=== PATIENT | female | born 1975 | race Caucasian/White ===

== ENCOUNTER 2019-10-25 23:20 | Emergency (ER) | payer OTHER, SELFPAY ==
--- NOTE | ~2019-10-25 | XR_ITS ---
EXAMINATION: XR chest 2V DATE: 10/25/2019 23:58 INDICATION: Midsternal chest pain TECHNIQUE: PA and lateral views of the chest are obtained. COMPARISON: 08/01/2006 FINDINGS: The lungs are free of acute opacities. There is no pleural effusion or pneumothorax. The ca rdiomediastinal silhouette is normal. There is mild thoracic spondylosis. Bilateral breast implants a re noted. IMPRESSION: 1. No acute cardiopulmonary abnormality. Reviewed, dictated and finalized at location A.
--- NOTE | ~2019-10-25 | CT_ITS ---
EXAMINATION: CT abdomen pelvis w con INDICATION: Epigastric abdominal pain TECHNIQUE: Computed tomographic images of the abdomen and pelvis were obtained after the administrati on of 100 cc of Omnipaque 350 intravenous contrast. The dose-length product (DLP) was 850.76 mGy-cm. Automated exposure control and iterative reconstruction technique were employed. COMPARISON: None available FINDINGS: The lung bases are clear. The heart size is normal. There are partially imaged bilateral br east implants. There is a small sliding hiatal hernia. Cysts of the liver measure up to 4 mm. The spl een, pancreas, gallbladder, and adrenal glands are normal. Cysts of the kidneys measure up to 2 cm on the right. There are peripelvic cysts of the kidneys as well. There is a 5 mm nonobstructing stone o f the left kidney lower pole. There is calcified atherosclerosis of the aorta and many of the other a rteries. No pathologically enlarged abdominal or pelvic lymph nodes are identified. There is no free intraperitoneal gas or evidence of bowel obstruction. There our fat-containing umbilical and supraumb ilical hernias. IMPRESSION: 1. No CT correlate for the patient's symptoms. 2. Nonobstructing left nephrolithiasis. Reviewed, dictated and finalized at location A.
[2019-10-25 23:25] VITALS: BP 126/71; PULSE 71; RESP 12; TEMP 36.4; O2SAT 99
--- NOTE | 2019-10-25 23:31 | ECG_ITS ---
Measurements Intervals [place] Rate: 70 P: 70 W[place]: 141 QRS: 57 QRSD: 82 T: 57 QT: 368 QTc: 400 Interpretive Statements SINUS RHYTHM NORMAL ECG Electronically Signed On 10-26-2019 8:06:37 CDT by Apollo Woodruff D.O.
--- NOTE | 2019-10-25 23:37 | ED.CHESTPAIN ---
HPI - Chest Pain General Chief Complaint: Chest Pain Stated Complaint: CP, LEFT ABD PAIN, SOB Time Seen by Provider: 10/25/19 23:37 History of Present Illness HPI narrative: Intermittent chest pain for the past 2 weeks. Feels like pressure. Associated with SOB, nausea, vomting. Worse with activity. Came back tonight while out drinking. Related Data Allergies Allergy/AdvReac Type Severity Reaction Status Date / Time No Known Allergies Allergy Verified 10/25/19 23:30 Review of Systems Review of Systems: All systems reviewed & are unremarkable except as noted in HPI and below Constitutional: Constitutional: Denies fever(s) Cardiovascular: Cardiovascular: Reports chest pain and Denies radiating jaw, neck or arm pain Respiratory: Respiratory: Reports dyspnea Gastrointestinal: Gastrointestinal: Reports abdominal pain, Reports nausea and Reports vomiting Musculoskeletal: Musculoskeletal: Reports back pain Neurologic: Denies numbness and Denies weakness Psychiatric: Psychiatric: Reports anxiety [facility] Social History Social History (Updated 10/26/19 @ 03:57 by Herbert Zafar MD) Alcohol intake: current Exam Const: General: healthy appearing, no acute distress and alert Orientation/consciousness: patient oriented x3 HENMT: Head: normal to inspection Neck: Neck: normal visual inspection and no lymphadenopathy Chest: Chest palpation & inspection: no tenderness Resp: Effort & Inspection: normal respiratory effort Auscultation: clear to auscultation bilaterally, no rales, no rhonchi and no wheezes Cardio: Jugular venous distension: no JVD Rate: regular rate Rhythm: regular rhythm Heart sounds: no murmurs GI: GI Palp: Yes Soft to palpation and No Tenderness to palpation present (GI) Other: Tender over the epigastrium Skin: General skin exam: normal color Neuro: General: patient oriented x3 and moves all extremities Speech: Abnormal speech present slurred Extrem: General: no edema Psych: Appearance: disheveled Affect: normal affect and Anxious affect present Course Vital Signs Vital signs: Vital Signs Temperature 36.4 C 10/25/19 23:25 Pulse Rate 71 10/25/19 23:25 Respiratory Rate 12 10/25/19 23:25 Blood Pressure 126/71 10/25/19 23:25 Pulse Oximetry 99 10/25/19 23:25 Temperature 36.6 C 10/26/19 01:58 Pulse Rate 76 10/26/19 01:58 Respiratory Rate 19 10/26/19 01:58 Blood Pressure 111/69 10/26/19 01:58 Pulse Oximetry 100 10/26/19 01:58 MDM - Chest Pain MDM Narrative Medical decision making narrative: Pain definitely seems to be GI in nature. Normal EKG. Labs reassuring. CT done to rule out cholecystitis, showed hiatal hernia Medical Records Data Attestation: I reviewed the patient's medical records. Lab Data Attestation: I reviewed the patient's lab results. Result diagrams: 10/25/19 23:37 10/25/19 23:37 Labs: Lab Results 10/25/19 10/25/19 10/25/19 Range/Units 23:30 23:37 23:37 WBC 11.1 H (4.5-10.0) K/mm3 RBC 4.80 (4.2-5.4) M/mm3 Hgb 15.4 H (12.0-15.0) g/dL Hct 46.3 (37.0-47.0) % MCV 96.5 (80-100) fl MCH 32.1 (26-34) pg MCHC 33.3 (32-36) g/dl RDW 12.3 (11.5-14.5) % Plt Count 222 (150-375) k/mm3 MPV 10.1 (7.4-10.4) fl Immature Gran % (Auto) 0.2 (0-0.5) % Neut % (Auto) 61.9 (45.5-73.1) % Lymph % (Auto) 27.6 (18.3-44.2) % [place] % (Auto) 8.4 (2.6-8.5) % Eos % (Auto) 1.4 (0-4.4) % Baso % (Auto) 0.5 (0.2-1.2) % Lymph # (Auto) 3.05 (0.9-3.2) K/mm3 [place] # (Auto) 0.9 H (0.1-0.6) K/mm3 Eos # (Auto) 0.2 (0-0.3) K/mm3 Baso # (Auto) 0.1 (0.0-0.1) K/mm3 Abs Immat Gran (auto) 0.02 (0.00-0.031) K/mm3 Absolute Neuts (auto) 6.9 H (1.3-6.7) K/mm3 Absolute Nucleated RBC 0.0 (0.0-0.012) K/mm3 Nucleated RBC % 0.0 (0.0-0.2) % PT 11.7 (11.1-14.7) Seconds INR 0.9 APTT 29.8 (22.3-36.8) SECONDS Sodium
[2019-10-25 23:39] VITALS: PULSE 79; O2SAT 97
[2019-10-25 23:44] LABS: Basophils Absolute Auto 0.1 K/mm3 (0.0-0.1); Basophils Percent Auto 0.5 % (0.2-1.2); Eosinophils Absolute Auto 0.2 K/mm3 (0-0.3); Eosinophils Percent Auto 1.4 % (0-4.4); Hematocrit 46.3 % (37.0-47.0); Hemoglobin 15.4 g/dL (12.0-15.0); Immature Granulocyte Absolute 0.02 K/mm3 (0.00-0.031); Immature Granulocyte Percent A 0.2 % (0-0.5); Lymphocytes Absolute Auto 3.05 K/mm3 (0.9-3.2); Lymphocytes Percent Auto 27.6 % (18.3-44.2); Mean Corpuscular HGB Conc 33.3 g/dl (32-36); Mean Corpuscular Hemoglobin 32.1 pg (26-34); Mean Corpuscular Volume 96.5 fl (80-100); Mean Platelet Volume 10.1 fl (7.4-10.4); Monocytes Absolute Auto 0.9 K/mm3 (0.1-0.6); Monocytes Percent Auto 8.4 % (2.6-8.5); Neutrophils Absolute Auto 6.9 K/mm3 (1.3-6.7); Neutrophils Percent Auto 61.9 % (45.5-73.1); Platelet Count Result 222 k/mm3 (150-375); Red Cell Distribution Width 12.3 % (11.5-14.5); White Blood Count 11.1 K/mm3 (4.5-10.0)
[2019-10-25 23:56] LABS: Blood Urea Nitrogen 13 mg/dL (7-17); Calcium 9.3 mg/dL (8.4-10.2); Carbon Dioxide 26 mmol/L (22-30); Chloride 105 mmol/L (98-107); Estimated CRCL calculation 83 ml/min; Estimated Glomerular Filt Rate > 60; Glucose 99 mg/dL (65-105); Potassium 3.8 mmol/L (3.4-5.0); Sodium 140 mmol/L (137-145)
[2019-10-25 23:59] LABS: INR 0.9; Prothrombin Time 11.7 Seconds (11.1-14.7)
[2019-10-26] LABS: Partial Thromboplastin Time 29.8 SECONDS (22.3-36.8)
[2019-10-26] MEDS: PANTOPRAZOLE SODIUM IV 40 MG VIAL IV PUSH (00:04)
[2019-10-26 00:08] LABS: Troponin I < 0.012 ng/mL (0.000-0.034)
--- NOTE | 2019-10-26 00:10 | PC.NURSE ---
Per ARTHUR Zafra, no aspirin needed.
[2019-10-26 00:56] VITALS: BP 100/51; PULSE 79; RESP 21; O2SAT 97
[2019-10-26 01:05] LABS: Alanine Aminotransferase 13 U/L (4-35); Albumin Level 4.4 g/dL (3.5-5.1); Alkaline Phosphatase 47 U/L (38-126); Aspartate Amino Transferase 24 U/L (14-36); Bilirubin,Total 0.2 mg/dL (0.2-1.3); Lipase 339 U/L (23-300)
[2019-10-26 01:58] VITALS: BP 111/69; PULSE 76; RESP 19; TEMP 36.6; O2SAT 100
== END 2019-10-26 02:00 | disposition home or self-care (01) ==
PROVIDERS: Emergency Provider Emergency Medicine; PCP Nurse Practitioner
DX: R07.89 Other chest pain (principal); K44.9 Diaphragmatic hernia without obstruction or gangrene
CPT/HCPCS: 36415; 71046; 74177; 80048; 80076; 83690; 84484; 85025; 85610; 85730; 93005; 96374; 99284; A9270; C9113; Q9967

== ENCOUNTER 2022-12-15 19:31 | Emergency (ER) | payer OTHER, SELFPAY ==
[2022-12-15 19:39] VITALS: BP 144/73; PULSE 93; RESP 18; TEMP 36.8; O2SAT 97
--- NOTE | 2022-12-15 20:08 | ED.DENTAL ---
HPI - Dental/Oral General Chief complaint: Dental/Oral Stated complaint: toothpain Time Seen by Provider: 12/15/22 19:55 Source: patient, RN notes reviewed and old records reviewed Mode of arrival: ambulatory Limitations: no limitations History of Present Illness HPI Narrative: 47 year old female who presents to [facility] care with complaints of right upper most posterior molar pain, gum pain and swelling surrounding tooth with some pain to right cheek area and hoahaoism right side. Patient reports that she was started on Penicillin VK but doesn't feel it is helping has taken previously without it being effective, wants a different antibiotic for her dental problem.Patient reports that she has taken 4 doses of Penicillin VK and doesn't feel it is helping, also taking Ibuprofen for her discomfort. 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 MD Complaint: tooth pain (swelling redness of gum) Location: Tooth # (2) Onset (ago): week(s) (2-3 weeks worse for past 3 days.) Severity scale (1-10): 8 Treatment prior to arrival: other (Ibuprofen and Penicillin ) Related Data Home Medications Medication Instructions Recorded Confirmed ibuprofen 800 mg tablet mg 12/15/22 penicillin V potassium 500 mg mg 12/15/22 tablet venlafaxine 37.5 mg mg PO 12/15/22 capsule,extended release 24 hr Allergies Allergy/AdvReac Type Severity Reaction Status Date / Time No Known Allergies Allergy Verified 10/25/19 23:30 Review of Systems Review of Systems: CONSTITUTIONAL: Denies fever, chills, or sweats. ENT: Denies rhinorrhea, congestion, sore throat, or otalgia. Reports dental pain to #2 tooth with pain also to cheek area and right hoahaoism area CARDIOVASCULAR: Denies chest pain, palpitations, or edema. RESPIRATORY: Denies cough or dyspnea. SKIN: Denies rash or itching. MUSCULOSKELETAL: Denies myalgia. NEUROLOGIC: Reports right hoahaoism headache All systems reviewed & are unremarkable except as noted in HPI and below PMFSH Past Medical History Medical History (Updated 12/18/22 @ 08:32 by Unique Vaughn NP) Anxiety and depression Arthritis GERD (gastroesophageal reflux disease) Social History Social History (Updated 12/18/22 @ 08:17 by Unique Vaughn NP) Smoking status: Current every day smoker Alcohol intake: current Substance use type: does not use Living arrangements: with family Gender identity (if verbalized by the patient): Female Comments At time of signature, agree with nursing past medical, surgical, social and family history. There is no relevant family history pertinent to the presenting complaint Exam Narrative: GENERAL: Well-appearing, well-nourished, and in some acute distress. HEAD: Normocephalic, atraumatic. EYES: PERRLA and EOMI. ENT: Nares clear, no rhinorrhea or epistaxis. Mucous membranes moist. pain to right upper most posterior molar with swelling and redness of surrounding gum, has had previous root canal and crown seeing endbander NECK: Supple.no lymphadenopathy, no trismus or any Blue angina CHEST: Clear to auscultation. No respiratory distress.SAO2 97% on room air HEART: Regular rate and rhythm. No murmur heard. Normal peripheral pulses. SKIN: Warm, dry, no rash. NEURO: No focal deficits. Alert and oriented x3. Course Course Emergency Course: Patient is aware of diagnosis, understands and agrees to treatment plan. Anticipatory guidance given. Patient agrees to follow-up as directed and is aware of reasons to seek care at the emergency department. Portions of this record may have been created with voice recognition software Level of Care: Express Care Visit Vital Signs Vital signs: Vital Signs Temperature 36.8 C 12/15/22 19:39 Pulse Rate 93 12/15/22 19:39 Respiratory Rate 18 12/15/22 19:39 Blood Pressure 144/73 H 12/15/22 19:39 Pulse Oximetry 97 12/15/22 19:39 Oxygen Delivery Room Air 12/15/22 19:39
== END 2022-12-15 20:22 | disposition home or self-care (01) ==
PROVIDERS: Emergency Provider Registered Nurse
DX: K04.7 Periapical abscess without sinus (principal); M19.90 Unspecified osteoarthritis, unspecified site; K21.9 Gastro-esophageal reflux disease without esophagitis; F17.200 Nicotine dependence, unspecified, uncomplicated
CPT/HCPCS: 99213; G0463

== ENCOUNTER 2023-08-03 17:26 | Emergency (ER) | payer OTHER, SELFPAY ==
[2023-08-03 17:39] VITALS: BP 108/87; PULSE 90; RESP 16; TEMP 36.3; O2SAT 100
--- NOTE | 2023-08-03 17:43 | ED.GENADULT ---
HPI - General Adult General Chief complaint: Dizziness Stated complaint: Blurred Vision and Dizziness Time Seen by Provider: 08/03/23 17:50 Mode of arrival: ambulatory Limitations: no limitations History of Present Illness MD complaint: Dizziness Related Data Home Medications Medication Instructions Recorded Confirmed acetaminophen 325 mg capsule 650 mg PO DAILY 08/03/23 08/03/23 (Tylenol) fexofenadine 60 mg capsule 60 mg PO Q12H 08/03/23 08/03/23 ibuprofen 800 mg tablet 800 mg PO BID 08/03/23 08/03/23 montelukast 10 mg tablet 10 mg PO DAILY 08/03/23 08/03/23 (Singulair) venlafaxine 75 mg tablet,extended 75 mg PO DAILY 08/03/23 08/03/23 release 24 hr Allergies Allergy/AdvReac Type Severity Reaction Status Date / Time No Known Allergies Allergy Verified 08/03/23 17:34 Review of Systems Review of Systems: CONSTITUTIONAL: Reports feeling ?off?, not ?thinking straight? EYES: Reports blurry vision ENT: Denies rhinorrhea, congestion CARDIOVASCULAR: Denies chest pain, palpitations, or edema. RESPIRATORY: Denies cough or dyspnea. GASTROINTESTINAL: Denies abdominal pain, nausea, vomiting MUSCULOSKELETAL: Denies back pain, joint pain, or myalgia. NEUROLOGIC: Reports dizziness. Reports headache yesterday morning. All systems reviewed & are unremarkable except as noted in HPI and below PMFSH Past Medical History Medical History (Updated 08/03/23 @ 18:07 by Mary Lou Ambriz NP) Anxiety and depression Arthritis GERD (gastroesophageal reflux disease) Social History Social History (Updated 12/18/22 @ 08:17 by Unique Vaughn NP) Smoking status: Current every day smoker Alcohol intake: current Substance use type: does not use Living arrangements: with family Gender identity (if verbalized by the patient): Female Comments At time of signature, agree with nursing past medical, surgical, social and family history. There is no relevant family history pertinent to the presenting complaint Exam Narrative: GENERAL: Nontoxic-appearing and in no acute distress. HEAD: Normocephalic, atraumatic. EYES: PERRLA, sclera clear, and EOMI. No nystagmus. ENT: Nares clear, turbinates pink, no rhinorrhea or epistaxis. Mucous membranes moist. TM pearly gatica with sharp light reflex bilaterally; no tragal tenderness. NECK: Supple. CHEST: No respiratory distress. Clear to auscultation. No bony deformities, no asymmetry. Speaks in full sentences. HEART: Regular rate and rhythm. No murmur heard. . EXTREMITIES: Grossly Normal range of motion, grossly normal strength and sensation. SKIN: Warm, dry NEURO: Alert and oriented x3. No focal deficits. Cranial nerves II through XII grossly intact PSYCH: Normal mood and affect Course Course Emergency Course: I discussed with this patient that I cannot rule out central causes of dizziness given her HPI. Patient is aware of, understands and agrees to be transferred to the emergency room. Patient agrees to proceed directly to the emergency department. Portions of this record may have been created with voice recognition software Level of Care: Express Care Visit Vital Signs Vital signs: Vital Signs Temperature 97.3 F L 08/03/23 17:39 Pulse Rate 90 08/03/23 17:39 Respiratory Rate 16 08/03/23 17:39 Blood Pressure 108/87 08/03/23 17:39 Pulse Oximetry 100 08/03/23 17:39 Temperature 97.3 F L 08/03/23 17:39 Pulse Rate 90 08/03/23 17:39 Respiratory Rate 16 08/03/23 17:39 Blood Pressure 108/87 08/03/23 17:39 Pulse Oximetry 100 08/03/23 17:39 Reviewed. Transfer Transfered to: [facility] Transportation: Other (Private vehicle) Transfer rationale: Dizziness, blurred vision, headache Accepting physician: Nishant Medical Decision Making [facility] Narrative Medical decision making narrative: Exam findings and HPI warrant further evaluation emergency room patient is non-toxic appearing and is in no distress. Differential
== END 2023-08-03 18:06 | disposition short-term general hospital (02) ==
PROVIDERS: Emergency Provider Nurse Practitioner
DX: R42 Dizziness and giddiness (principal); F17.200 Nicotine dependence, unspecified, uncomplicated; M19.90 Unspecified osteoarthritis, unspecified site; K21.9 Gastro-esophageal reflux disease without esophagitis; F41.9 Anxiety disorder, unspecified; F32.A Depression, unspecified
CPT/HCPCS: 99213; G0463

== ENCOUNTER 2023-11-01 16:34 | Outpatient (CLI) | payer OTHER, SELFPAY ==
[2023-11-01 16:57] LABS: Basophils Percent Auto 0.4 % (0.2-1.2); Eosinophils Absolute Auto 0.1 K/mm3 (0-0.3); Eosinophils Percent Auto 1.1 % (0-4.4); Hemoglobin 15.2 g/dL (12.0-15.0); Immature Granulocyte Absolute 0.02 K/mm3 (0.00-0.031); Immature Granulocyte Percent A 0.2 % (0-0.5); Lymphocytes Absolute Auto 2.49 K/mm3 (0.9-3.2); Lymphocytes Percent Auto 23.3 % (18.3-44.2); Mean Corpuscular HGB Conc 33.8 g/dl (32-36); Mean Corpuscular Hemoglobin 31.9 pg (26-34); Mean Corpuscular Volume 94.3 fl (80-100); Mean Platelet Volume 9.9 fl (7.4-10.4); Monocytes Absolute Auto 0.8 K/mm3 (0.1-0.6); Monocytes Percent Auto 7.6 % (2.6-8.5); Neutrophils Absolute Auto 7.2 K/mm3 (1.3-6.7); Neutrophils Percent Auto 67.4 % (45.5-73.1); Platelet Count Result 222 k/mm3 (150-375); Red Blood Count 4.77 M/mm3 (4.2-5.4); Red Cell Distribution Width 13.2 % (11.5-14.5); White Blood Count 10.7 K/mm3 (4.5-10.0)
[2023-11-01 17:08] LABS: Hemoglobin A1C 5.6 % (<5.7)
[2023-11-01 17:10] LABS: Alanine Aminotransferase 23 U/L (6-35); Albumin Level 4.5 g/dL (3.5-5.1); Alkaline Phosphatase 69 U/L (38-126); Anion Gap 6 mmol/L (4-12); Aspartate Amino Transferase 31 U/L (14-36); Bilirubin,Total 0.7 mg/dL (0.2-1.3); Blood Urea Nitrogen 13 mg/dL (7-17); Calcium 9.3 mg/dL (8.4-10.2); Carbon Dioxide 25 mmol/L (22-30); Chloride 106 mmol/L (98-107); Estimated Glomerular Filt Rate > 60; Glucose 116 mg/dL (65-110); Sodium 137 mmol/L (137-145); Uric Acid 4.9 mg/dL (2.5-7.5)
== END 2023-11-01 16:35 | disposition home or self-care (01) ==
PROVIDERS: PCP Family Medicine; Visit Provider Family Medicine
DX: R73.09 Other abnormal glucose (principal); Z00.00 Encounter for general adult medical examination without abnormal findings; R53.82 Chronic fatigue, unspecified; E79.0 Hyperuricemia without signs of inflammatory arthritis and tophaceous disease; L40.9 Psoriasis, unspecified
CPT/HCPCS: 36415; 80053; 83036; 84443; 84550; 85025

== ENCOUNTER 2023-12-13 16:08 | Emergency (ER) | payer OTHER, SELFPAY ==
--- NOTE | ~2023-12-13 | CT_ITS ---
EXAMINATION: CT brain wo con DATE: 12/13/2023 18:12 INDICATION: Fall with head injury TECHNIQUE: Computed tomography (CT) of the head was performed without intravenous contrast. Sagittal and coronal reconstructions were performed. The mA was adjusted according to patient size. Iterative reconstruction technique was employed. The dose-length product was 681.00 mGy-cm. COMPARISON: None FINDINGS: No fracture. No acute intracranial hemorrhage, acute infarction or abnormal extra axial fluid collect ion. Ventricles are normal and symmetric. No mass/mass effect. Mild mucosal thickening the left axill bogdan sinus. The orbits and mastoid air cells are normal. IMPRESSION: 1. Normal brain. No fracture or acute intracranial process. Reviewed, dictated and finalized at location A.
--- NOTE | ~2023-12-13 | CT_ITS ---
EXAMINATION: CT lumbar spine wo con DATE: 12/13/2023 18:13 INDICATION: Low back pain post fall TECHNIQUE: Computed tomography (CT) of the lumbar spine was performed without intravenous contrast. A utomated exposure control and iterative reconstruction technique were employed. The dose-length produ ct was 1682.35 mGy-cm. COMPARISON: CT dated 10/26/2019 FINDINGS: 5 degrees lower lumbar levocurvature. Sagittal alignment is normal. Vertebral body heights are normal . There are small Schmorl's nodes at multiple levels in the lumbar and visualized lower thoracic spin e. Mild to moderate disc height loss at L2-L3 and L3-L4. Mild disc height loss at L4-L5. Disc bulges resulting in mild central canal stenosis at L2-L3, L3-L4 and L4-L5. Severe facet osteoarthritis bilat erally at T11-T12, minimally right at L2-L3, left at L3-L4 and on the right at L4-L5. Mild to moderat e facet osteoarthritis throughout the remainder of the lumbar spine. Mild neural foraminal stenosis o n bilaterally at L2-L3 through L4-L5 and minimally bilaterally at L5-S1. Mild bilateral sacroiliac os teoarthritis. No sacral fracture. Again seen are bilateral renal cysts the largest on the left measur ing 1.7 cm with small amount of peripheral round calcific lesion. 3 mm nonobstructing right renal sto ne. Paravertebral soft tissues are unremarkable. IMPRESSION: 1. Mild to moderate lumbar spondylosis and mild bilateral sacroiliac osteoarthritis. No acute osseous abnormality. 2. Nonobstructing 3 mm right renal stone. Reviewed, dictated and finalized at location A. IMPRESSION: 1. Mild to moderate lumbar spondylosis and mild bilateral sacroiliac osteoarthr itis. No acute osseous abnormality. 2. Nonobstructing 3 mm right renal stone.
--- NOTE | ~2023-12-13 | CT_ITS ---
EXAMINATION: CT cervical spine wo con DATE: 12/13/2023 18:13 INDICATION: Neck pain post fall TECHNIQUE: Computed tomography (CT) of the cervical spine was performed without intravenous contrast. Automated exposure control and iterative reconstruction technique were employed. The dose-length pro duct was 179.24 mGy-cm. COMPARISON: None FINDINGS: Reversal of the normal cervical lordosis likely positional and related to the presence of a cervical collar. No spondylolisthesis or facet subluxation. Vertebral body heights are normal. No fracture. Mo derate disc height loss with severe bilateral uncovertebral osteoarthritis at C5-C6. Mild disc height loss with moderate bilateral uncovertebral osteoarthritis at C6-C7. There are posterior disc osteoph yte complex resulting in mild central canal stenosis at both of these levels. Severe facet osteoarthr itis on the left at C4-C5. There is additional mild to moderate upper cervical predominant facet oste oarthritis. Mild neural foraminal stenosis bilaterally at C5-C6 with minimal neural foraminal stenosi s at a few additional cervical levels. Cervical soft tissues are unremarkable. Mild emphysema and mil d pleural parenchymal scarring at the visualized apices of the lungs. IMPRESSION: 1. Moderate lower cervical predominant spondylosis. No acute osseous abnormality. Reviewed, dictated and finalized at location A. IMPRESSION: 1. Moderate lower cervical predominant spondylosis. No acute osseous abnormalit y.
[2023-12-13 16:19] VITALS: BP 138/81; PULSE 100; RESP 20; TEMP 36.2; O2SAT 98
--- NOTE | 2023-12-13 18:22 | ED.FALL ---
HPI - Fall General Chief Complaint: Fall Stated Complaint: FALL 3D AGO. HEAD,NECK,BACK,BUTT PAIN Time Seen by Provider: 12/13/23 16:33 History of Present Illness HPI Narrative: 48-year-old female presents to the emergency department for head pain, neck pain and back pain after a mechanical fall that occurred 3 days ago. Patient states she was mowing grass and tripped on a rock, fell backwards and hit her head. She did not lose consciousness. She denies vision changes, focal numbness or weakness, saddle anesthesia, urinary or bowel incontinence, urinary tension. She is not anticoagulated. Related Data Home Medications Medication Instructions Recorded Confirmed fexofenadine 60 mg capsule 60 mg PO Q12H 08/03/23 11/22/23 ibuprofen 800 mg tablet 800 mg PO BID 08/03/23 11/22/23 acetaminophen 325 mg capsule 1,000 mg PO DAILY 08/16/23 11/22/23 (Tylenol) albuterol sulfate 2 mg/5 mL oral 2 mg PO TID 08/16/23 11/22/23 syrup budesonide-formoterol HFA 160 2 puff inhalation Q12H 08/16/23 11/22/23 mcg-4.5 mcg/actuation aerosol inhaler (Symbicort) pantoprazole 40 mg granules 40 mg PO DAILY 08/16/23 11/22/23 delayed-release for susp in packet secukinumab 300 mg/2 mL (150 300 mg subcut WEEKLY 08/16/23 11/22/23 mg/mL) subcutaneous pen injector (Cosentyx UnoReady Pen) Allergies Allergy/AdvReac Type Severity Reaction Status Date / Time No Known Allergies Allergy Verified 12/13/23 16:24 Review of Systems Review of Systems: All systems reviewed & are unremarkable except as noted in HPI and below PMFSH Past Medical History Medical History Anxiety and depression Arthritis Chronic fatigue Generalized pain GERD (gastroesophageal reflux disease) Psoriasis Tension headache Surgical History Surgical History H/O breast augmentation Family History Family History Mother Diabetes mellitus Heart disease Social History Social History Social History: Spouse Smoking packs per day: 2 Smoking cigarettes per day: 40.0 Years smoked: 35 Smoking pack-years: 70.00 Smoking status: Current every day smoker Tobacco type: cigarettes Second hand tobacco smoke exposure: No Alcohol intake: current Drinks per week: 3 Substance use: never Substance use type: does not use Do You Feel Safe in your Home?: Yes Lack of Transportation: No Lack of Food: Never True Current Housing: I Have Housing Concerned About Future Housing: No Difficulty Paying Gas/Electric Bills: No Difficulty Paying for Meds: No Currently Unemployed: No Education: Don't Know Difficulty w/ Childcare or Family Care: No Living arrangements: with family 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 HEAD: Normocephalic, atraumatic. EYES: PERRLA and EOMI. ENT: Nares clear, no rhinorrhea or epistaxis. Mucous membranes moist. NECK: Minimal cervical midline spinous tenderness without step-offs or deformities BACK: No thoracic spinous tenderness, step-offs or deformities. No significant lumbar spinous tenderness but there is tenderness to the sacrum without step-offs or deformities. CHEST: Clear to auscultation. No respiratory distress. HEART: Regular rate and rhythm. No murmur heard. Normal peripheral pulses. ABDOMEN: Soft, nontender, nondistended, normal active bowel sounds. EXTREMITIES: Normal range of motion. No edema. No tenderness to lower extremities or upper extremities SKIN: Warm, dry, no rash. NEURO: No focal deficits. Alert and orien
[2023-12-13] MEDS: IBUPROFEN 400 MG TABLET 800 MG PO (18:56)
== END 2023-12-13 19:06 | disposition home or self-care (01) ==
PROVIDERS: Emergency Provider Physician Assistant; PCP Family Medicine
DX: S09.90XA Unspecified injury of head, initial encounter (principal); S16.1XXA Strain of muscle, fascia and tendon at neck level, initial encounter; S30.0XXA Contusion of lower back and pelvis, initial encounter; K21.9 Gastro-esophageal reflux disease without esophagitis; L40.9 Psoriasis, unspecified; M19.90 Unspecified osteoarthritis, unspecified site; R53.82 Chronic fatigue, unspecified; F32.A Depression, unspecified; F41.9 Anxiety disorder, unspecified; F17.210 Nicotine dependence, cigarettes, uncomplicated; Y93.H9 Activity, other involving exterior property and land maintenance, building and construction; W18.09XA Striking against other object with subsequent fall, initial encounter
CPT/HCPCS: 70450; 72125; 72131; 99284; A9270

== ENCOUNTER 2024-07-30 15:55 | Outpatient (CLI) | payer OTHER, SELFPAY ==
--- OUTSIDE RECORDS SUMMARY | 2024-07-30 17:08 | XMS_ITS | Clinical Summary ---
Author Organization [facility] Address [address] [place] [address] Phone Care Team Providers Care Unit Secy Name Role Phone Светлана Guy APRN, ALEXANDER Primary Care P rovider Allergies No known active allergies Medications ipratropium-albu terol (DUO-NEB) 0.5-2.5 (3) MG/3ML SolutionIndicati ons:Moderate persistent asthma without complication 3 mL by Nebulization route every 6 hours as needed for Wheezing or Shortness of Breath. 120 Vial 0 Active fluticasone (FLONASE) 50 MCG/ACT Suspension 1-2 Sprays by Nasal route daily. Use in each nostril as directed. 1 Bottle 3 0 Active diclofenac sodium (VOLTAREN) 1 % Gel Apply 2 g 4 times daily. 1 Tube 1 0 Active albuterol (PROAIR HFA) 108 (90 Base) MCG/ACT Aerosol SolutionIndicati ons:Moderate persistent asthma without complication,Bro nchitis take 2 Puffs by inhalation every 4 hours as needed for Wheezing or Cough. 8.5 g 0 Active venlafaxine (EFFEXOR-XR) 37.5 MG CAPSULE SR 24 HR Take 1 Capsule by mouth daily. 90 Capsule 1 2 Active hydrOXYzine (ATARAX) 25 MG Tablet hydroxyzine HCl 25 mg tablet TAKE 1 TABLET BY MOUTH EVERY 6 HOURS NEEDED FOR SLEEP Active pantoprazole (PROTONIX) 40 MG Tablet Delayed ResponseIndicati ons:Hiatal hernia with GERD,Ferrari's esophagus without dysplasia Take 1 Tablet by mouth in the morning and at bedtime. 180 Tablet 1 2 Active Taltz 80 MG/ML Solution Auto-injector 2 Active Secukinumab (COSENTYX SC) by Subcutaneous route. Active Active Problems Problem Noted Date Diagnosed Date Ferrari's esophagus without dysplasia 01/03/2022 Spondylosis without myelopat hy or radiculopathy, cervical region 10/15/2017 Asthma Tobacco dependence syndrome Depression Hiatal hernia with GERD Resolved Problems Problem Noted Date Diagnosed Date Resolved Date Encounter for screening for infections with a predominantly sexual mode of transmission 07/30/2019 01/04/2022 Adnexal cyst 02/08/2019 01/04/2022 Acute appendicitis 02/07/[address] scan 02/07/2019 01/04/2022 Renal calculus, left 02/07/2019 022 Thoracic spondylosis without myelopathy 10/15/2017 01/04/2022 Closed fracture of transvers e process of lumbar vertebra 10/15/2017 01/04/2022 Immunizations Immunization Administration Dates Next Due Covid-19, Mrna, Lnp-s, Pf, 30 Mcg/0.3 Ml Dose (Randy snow) 05/21/2020,05/03/2020 Hepatitis B Vaccine 01/04/2022 Pneumococcal Vaccine Adult - 23 Valent 7 TDAP Vaccine 01/04/2022 Family History Medical History Relation Name Comments Cancer Father Stroke Mother Relation Name Status Comments Father Mother Social History Tobacco Use Types Packs/Day Years Used Date Smoking Tobacco: Every Day Cigarettes Smokeless Tobacco: Never Tobacco Cessation:Ready to Q uit: Not Asked; Counseling Given: Not Answered Alcohol Use Standard Drinks/Week Comments Yes 0 (1 standard drink = 0.6 oz pur e alcohol) occasional, social PHQ-2 Answer Date Recorded PHQ-2 Score 1 01/15/2019 Sexually Active Control Partners Comments Yes Male Comments No Sex and Gender Information Value Date Recorded Sex Assigned at Not on file Legal Sex Female 10:20 PM CDT Gender Identity Not on file Sexual Orientation Not on file Last Filed Vital Signs Vital Sign Reading Time Taken Comments Blood Pressure 110/74 04/28/2022 2:57 PM DRIER TENDER Pulse 90 04/28/2022 2:57 PM DRIER TENDER Temperature 36.6 C (97.8 F) 04/28/2022 2:57 PM DRIER TENDER Respiratory Rate 18 04/28/2022 2:57 PM DRIER TENDER Oxygen Saturation 98% 04/28/2022 2:57 PM DRIER TENDER Inhaled Oxygen Concentration - - Weight 103.4 kg (228 lb) 04/28/2022 2:57 PM DRIER TENDER Height 162.6 cm (5' 4 ) 04/28/2022 2:57 PM DRIER TENDER Body Mass Index 39.14 04/28/2022 2:57 PM DRIER TENDER Plan of Treatment Health Maintenance Due Date Last Done Comments Hepatitis C Virus (HCV) Screening 1975 Pneumococcal Immunization Combined (2 of 2 - PCV) 12/28/2017 12/28/2016 Hepatitis B Immunization (2 of 3 - 19+ 3-dose series) 02/01/2022 01/04/2022 Mammogram 03/01/2023 03/01/2022, 11/27/2017 Influenza Immunization (#1) 2024 SARS-COV-2 Immunization ( season) 2024 04/21/2021, 05/21/2020, 05/03/2020 Pap Smear 07/11/2024 07/11/2021, 10/29/2017 Cologuard 2024 Immunochemical Fecal Occult Blood 2024 Cervical Cancer Screening (CCS) 07/11/2026 HPV/Cotest 07/11/2026 07/11/2021 Td Immunization Every 10 Yea rs (Adults With 1 Tdap) 01/05/2032 01/04/2022 Colonoscopy 04/04/2032 04/04/2022 Colorectal Cancer Screening 04/04/2032 Respiratory Syncytial Virus (RSV) Immunization (Adult) (1 - 1-dose 75+ series) 2049 04/04/2022 DTaP/Tdap/Td Immunization Discontinued 01/04/2022 Discussion re Starting/Frequency of Mammograms Completed 03/01/2022 Meningococcal Immunization (ACWY) Aged Out No longer eligible based on patient's age to complete this topic Rotavirus Immunization Aged Out No lo nger eligible based on patient's age to complete this topic Procedures Procedure Name Priority Date/Time Associated Diagnosis Comments HM COLONOSCOPY 04/04/2022 12:00 AM DRIER TENDER KVNG SCREENING YOUNG W IMPL DIGITAL W CAD W IDA Routine 03/01/2022 4:00 PM CDT Encounter for screening mammogram for malignant neoplasm of breast HUMAN PAPILLOMA VIRUS (HPV) 07/11/2021 12:00 AM DRIER TENDER from Last 3 Months or Most Recently Relevant to Health Maintenance Results * HM COLONOSCOPY (04/04/2022 12:00 AM DRIER TENDER) 04/04/2022 us Not On File Provider PROCEDURE/MINOR SURGICAL OR DERABLES Final Result SCAN * KVNG SCREENING YOUNG W IMPL DIGITAL W CAD W IDA (03/01/2022 4:00 PM CDT) Anatomical Region Laterality Modality breast Bilateral Mammography 03/01/2022 3:22 PM CDT Narrative 03/06/2022 11:37 AM CDT - KVNG SCREENING YOUNG W IMPL DIGITAL W CAD W IDA BILATERAL DIGITAL SCREENING MAMMOGRAM 3D/2D WITH CAD WITH MEDIOLATERAL OBLIQUE CRANIOCAUDAL WITH AUGMENTATION: 03/01/2022 The study was acquired using digital technology and interpreted from soft copy. Current study was also evaluated with ICAD version 7.2. 2D digital mammographic views, as well as 3D digital tomosynthesis were performed in the CC and MLO projections. CLINICAL: Routine screening. Patient has no complaints. No personal history of cancer. No family history of breast cancer. COMPARISONS: Comparison is made to exam dated: 11/26/2017 [facility]. BREAST TISSUE:The tissue of both breasts is predominantly fatty. FINDINGS: Bilateral breast implants are present. No significant masses, calcifications, or other findings are seen in either breast. There has been no significant interval change. IMPRESSION: BI-RAD 1 NEGATIVE There is no mammographic evidence of malignancy. A 1 year screening mammogram is recommended. A letter will be sent to the patient with these results. The patient will be entered into a reminder system with a target due date of 1 year for her next screening exam. Electronically signed by: Ceci Mishra M.D. ab/penrad:03/06/2022 11:26:56 Minute Clerk For Basic Traffic(s): RASHEL DouglasR)(M), [facility] letter sent: Normal Exam Reading location: [facility] BI-RADS: 1 Negative Procedure Note Ceci Mishra MD - 03/06/2022 - KVNG SCREENING YOUNG W IMPL DIGITAL W CAD W IDA BILATERAL DIGITAL SCREENING MAMMOGRAM 3D/2D WITH CAD WITH MEDIOLATERAL OBLIQUE CRANIOCAUDAL WITH AUGMENTATION: 03/01/2022 The study was acquired using digital technology and interpreted from soft copy. Current study was also evaluated with ICAD version 7.2. 2D digital mammographic views, as well as 3D digital tomosynthesis were performed in the CC and MLO projections. CLINICAL: Routine screening. Patient has no complaints. No personal history of cancer. No family history of breast cancer. COMPARISONS: Comparison is made to exam dated: 11/26/2017 [facility]. BREAST TISSUE:The tissue of both breasts is predominantly fatty. FINDINGS: Bilateral breast implants are present. No significant masses, calcifications, or other findings are seen in either breast. There has been no significant interval change. IMPRESSION: BI-RAD 1 NEGATIVE There is no mammographic evidence of malignancy. A 1 year screening mammogram is recommended. A letter will be sent to the patient with these results. The patient will be entered into a reminder system with a target due date of 1 year for her next screening exam. Electronically signed by: Ceci russell/penrad:03/06/2022 11:26:56 Minute Clerk For Basic Traffic(s): ROSA Douglas)(M), [facility]: Normal Exam Reading location: [facility] BI-RADS: 1 Negative Светлана Guy APRN, CNP IMАлександр MAMMO ORDER ADAM Final Result * HUMAN PAPILLOMA VIRUS (HPV) (07/11/2021 12:00 AM DRIER TENDER) 07/11/2021 us Not On File Provider LAB SEND OUTS Final Resul t SCAN from Last 3 Months or Most Recently Relevant to Health Maintenance Insurance [employer] Advance Directives * Full Code (Latest Code Status on File) Date Activated Date Inactivated Comments 02/07/2019 9:13 PM 02/08/2019 4:48 PM CPR-Full Dann atment: FULL ARREST: Attempt Resuscitation/CPR wit intubation and mechanical ventilation. PRE-ARREST: Use entire range of life support measures to stabilize the patient. Care Teams Unit Secy Relationship Specialty Start Date End Date Светлана Guy APRN, DRIER TENDER [address] [place] [address] PCP - General Advanced Practice Nurse 09/22/18
--- OUTSIDE RECORDS SUMMARY | 2024-07-30 17:08 | XMS_ITS | Referral Summary ---
Author Organization [facility] Physician Office Building [address] [place] [id number] Care Team Providers Care Client Administrator Name Role Phone Unknown, Notinfile Primary Care Provider Unavail able Allergies No known active allergies Medications celecoxib (CeleBREX) 100 mg capsule Take 200 mg by mouth daily. Active traMADol (ULTRAM) 50 mg tablet Take 50 mg by mouth every 6 (six) hours. Active ibuprofen (ibuprofen) 200 mg tab/cap Take by mouth every 6 (six) hours as needed for pain. Active cyclobenzaprine (FLEXERIL) 10 mg tablet Take 10 mg by mouth 3 (three) times a day as needed for muscle spasms. Active fluticasone furoate (ARNUITY ELLIPTA) 200 mcg/actuation blister with device Inhale 200 mcg daily. Active fluocinonide 0.1 % cream Apply topically daily. Active Active Problems Problem Noted Date Diagnosed Date Cervical spondylosis without myelopathy or radic ulopathy. 10/15/2017 Thoracic spondylosis without myelopathy 10/16/19 18 Closed fracture of transverse process of lumbar vertebra 10/15/2017 Social History Tobacco Use Types Packs/Day Years Used Date Smoking Tobacco: Every Day Cigarettes 1 37.2 Started: 1987 Smokeless Tobacco: Never Tobacco Cessation:Counseling Given: Yes Alcohol Use Standard Drinks/Week Comments No 0 (1 standard drink = 0.6 oz pur e alcohol) PHQ-2 Answer Date Recorded PHQ-2 Score 0 07/19/2018 Personal Safety Answer Date Recorded Have you ever been in or are you currently in a harmful physical or emotional relationship or is someone making you feel afraid or unsafe? 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 file Not on file Last Filed Vital Signs Vital Sign Reading Time Taken Comments Blood Pressure 148/95 08/03/2023 7:51 PM CDT Pulse 88 08/03/2023 7:51 PM CDT Temperature 36.7 C (98.1 F) 08/03/2023 7:51 PM CDT Respiratory Rate 16 08/03/2023 7:51 PM CDT Oxygen Saturation 100% 08/03/2023 7:51 PM CDT Inhaled Oxygen Concentration - - Weight 99.8 kg (220 lb) 08/03/2023 7:51 PM CDT Height 162.6 cm (5' 4 ) 10/29/2017 11:17 AM CDT Body Mass Index 37.76 10/29/2017 11:17 AM CDT Plan of Treatment Not on file Procedures Procedure Name Priority Date/Time Associated Diagnosis Comments SCREENING MAMMOGRAM 2D BILATERAL Schedule Routine, Read Routine (OP Routine) 11/26/2017 1:00 PM CDT Screening breast examination THINPREP IMAGING PAP AND HPV MRNA E6/E7 REFLEX HPV 16,18/45 Routine 10/29/2017 3:09 PM CDT from Last 3 Months or Most Recently Relevant to Health Maintenance Results * Screening Mammogram 2D Bilateral (11/26/2017 1:00 PM CDT) Anatomical Region Laterality Modality Breast Bilateral Mammography Impressions 11/27/2017 3:17 PM CDT There is no mammographic evidence of malignancy. Any decision to biopsy should be based on clinical assessment. Screening mammogram in 1 year is recommended. BI-RADS Category 1: Negative Narrative 11/27/2017 3:17 PM CDT Screening with Implants. BILATERAL DIGITAL MAMMOGRAPHY BILATERAL BREAST IMPLANTS, 2004 This is a baseline study. Mammogram Findings CAD (computer-aided detection) software was utilized. The breasts are heterogeneously dense. This may lower the sensitivity of mammography. No masses, significant calcifications or other abnormalities are seen. Shakira Vasquez MD IMG MAMMO PROCEDURE S Final Result * ThinPrep Imaging Pap and HPV mRNA E6/E7 Reflex HPV 16,18/45 (10/29/2017 3:09 PM CDT) Report status CANCELED [facility] - Comment:Result canceled by tanvir redding ancillary CLINICAL INFORMATION: [facility] - Comment:Information not prov ided LMP 10/15/17 [facility] [place] Previous Pap NONE GIVEN [facility] [place] Prev. Bx NONE GIVEN [facility] [place] SOURCE: [facility] - Comment:Cervix, Endocervix Pap, specimen adequacy [facility] - Comment: Satisfactory for evaluation. Endocervical/transformation zone component present. Pap, general categorization CANCELED [facility] - Comment:Result canceled by tanvir redding ancillary HPV interp [facility] - Comment: Negative for intraepithelial lesion or malignancy. Reactive cellular changes associated with repair Infection: [facility] - Comment:Trichomonas vaginali s identified. COMMENTS [facility] - Comment: This Pap test has been evaluated with computer assisted technology. Product Safety Professional [facility] - Comment: BLG, CT(ASCP) CT screening location: [place] [address] [place] [address] Review licensing and registration director CANCELED [facility] - Comment:Result canceled by tanvir redding ancillary Pathologist [facility] - Comment: Lam Carter M.D., Board Certified in Anatomic Pathology and Cytopathology. (electronic signature) Comment [facility] - Comment: EXPLANATORY NOTE: The Pap is a screening test for cervical cancer. It is not a diagnostic test and is subject to false negative and false positive results. It is most reliable when a satisfactory sample, regularly obtained, is submitted with relevant clinical findings and history, and when the Pap result is evaluated along with historic and current clinical information. Human papillomavirus RNA, High Risk E6/E7 Not Detected Not Detected [facility] - Comment: This test was performed using the APTIMA HPV Assay ([employer] This assay detects E6/E7 viral messenger RNA (mRNA) from 14 high-risk HPV types (16,18,31,33,35,39,45,51,52,56,58,59,66,68). The analytical performance characteristics of this assay have been determined by [employer]. The modifications have not been cleared or approved by the FDA. This assay has been validated pursuant to the CLIA regulations and is used for clinical purposes. 10/29/2017 3:09 PM CDT 10/30/2017 4:51 AM CDT Narrative Resulting Agency Comment Performing Organization Information: Site ID: Name: [email or web address] Address: [address] [place] [address] Director: Ender Das Shakira Vasquez MD LAB CYTOLOGY ORDERA BLES Final Result [facility] [place] from Last 3 Months or Most Recently Relevant to Health Maintenance [place] [address] [facility] Address: [facility] [id number] [place] [address] [facility] [place] [id number] [employer]IG[employer] CIG[employer] Care Teams Client Administrator Relationship Specialty Start Date End Date Unknown, Notinfile PCP - General 08/03/23
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
--- OUTSIDE RECORDS SUMMARY | 2024-07-30 17:08 | XMS_ITS | Encounter Summary ---
Author Organization [facility] Address [address] [place] [address] Phone Care Team Providers Care Traveling Phlebotomist Name Role Phone Светлана Guy APRN, CNP Primary Care P rovider Encounter Details Date Type Department Care Team (Late st Contact Info) Description 08/28/2019 Telephone [facility] [address] [place] [address] Светлана Guy APRN, BANK RUNNER [address] [place] [address] Social History Tobacco Use Types Packs/Day Years Used Date Smoking Tobacco: Every Day Cigarettes Smokeless Tobacco: Never Alcohol Use Standard Drinks/Week Comments Yes 0 [...] on file Sexual Orientation Not on file COVID-19 Exposure Response Date Recorded In the last month, have you been in contact with someone who was confirmed or suspected to have Coronavirus / COVID-19? No / Unsure 08/03/2019 2:56 PM CDT documented as of this encounter Miscellaneous Notes * Telephone Encounter - Lucille Zaragoza - 08/28/2019 7:32 AM CDT [id number] - EXTERNAL PAIN REFERRAL We have been unable to contact patient by phone or mail in regards to referral. Thank you. [facility] documented in this encounter Plan of Treatment Not on file documented as of this encounter Visit Diagnoses Not on filedocumented in this encounter Additional Health Concerns Infection Onset Date Last Indicated Resolved Time COVID - 19 07/17/2020 07/17/2020 07/18/2020 6:55 AM BRAZER RESISTANCE COVID - 19 04/29/2021 04/29/2021 05/19/2021 12:1 6 AM BRAZER RESISTANCE COVID - 19 Confirmed 08/03/2022 08/03/2022 023 12:18 AM CDT Assessment Noted Time PHQ-9 Depression Total Score: 1 08/31/19 19 1:00 PM CDT documented as of this encounter Care Teams Traveling Phlebotomist Relationship Specialty Start Date End Date Светлана Guy, ORACLE FUSION CONSULTANT, BANK RUNNER [address] [place] [address] PCP - General Advanced Practice Nurse 09/22/18 documented as of this encounter
--- OUTSIDE RECORDS SUMMARY | 2024-07-30 17:08 | XMS_ITS | Clinical Summary ---
Author Organization [facility] Address [address] [place] [address] Care Team Providers Care Manager Audio Name Role Phone KaifroylangilСветлана reyes JABIER Primary Care Provider Allergies No known active allergies Medications pantoprazole EC (PROTONIX) 40 MG tablet Take 40 mg by mouth 2 (two) times a day. Active magnesium oxide (MAG-OX) 400 (240 Mg) MG tablet Take 400 mg by mouth daily. Active Secukinumab, 300 MG Dose, (COSENTYX SENSOREADY, 300 MG,) 150 MG/ML Solution Auto-injector Inject 150 mg into the skin. Active multi vitamin/mineral s (THERA-M ENHANCED) tablet Take 1 tablet by mouth daily. Active fexofenadine (JACOB) 180 MG tablet Take 180 mg by mouth daily. Active fluticasone propionate (FLONASE) 50 MCG/ACT nasal spray 1 spray by Nasal route daily. Active ipratropium-alb uterol (COMBIVENT RESPIMAT) 20-100 MCG/ACT inhaler Inhale 1 puff into the lungs 4 (four) times daily. Please provide assembled. 90 mcg. Q 6 hours prn Active diclofenac sodium (VOLTAREN) 1 % gel Apply topically 4 (four) times daily. Active ibuprofen (MOTRIN) 200 MG tablet Take 200 mg by mouth every 6 (six) hours as needed for Pain. 2 as needed for pain Active Albuterol Sulfate, sensor, 108 (90 Base) MCG/ACT AEROSOL POWDER, BREATH ACTIVATED every 4 (four) hours. Active cyclobenzaprine (FLEXERIL) 10 MG tablet Take 10 mg by mouth as needed. Active hydrOXYzine (ATARAX) 25 MG tablet as needed. Active linaCLOtide (LINZESS) 145 MCG capsule as needed. Active VTAMA 1 % Cream as needed. 2 Active venlafaxine XR (EFFEXOR-XR) 37.5 MG 24 hr capsule daily. 2 Active vilazodone (VIIBRYD) 10 MG tablet daily. Active Family History Medical History Relation Comments Cancer Father Stroke Mother Relation Status Comments Father Mother Social History Tobacco Use Types Packs/Day Years Used Date Smoking Tobacco: Every Day Cigarettes Smokeless Tobacco: Never Tobacco Cessation:Ready to Q uit: Not Asked; Counseling Given: Not Answered Alcohol Use Standard Drinks/Week Comments Yes 1.7 (1 standard drink = 0.6 oz p ure alcohol) Comments Unknown Sex and Gender Information Value Date Recorded Sex Assigned at Not on file Legal Sex Female 7:10 PM CDT Gender Identity Not on file Sexual Orientation Not on file Last Filed Vital Signs Vital Sign Reading Time Taken Comments Blood Pressure 106/82 04/04/2022 12:55 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 Pulse 94 04/04/2022 12:55 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 Temperature 35.9 C (96.7 F) 04/04/2022 12:34 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 Respiratory Rate 26 04/04/2022 12:55 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 Oxygen Saturation 95% 04/04/2022 12:55 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 Inhaled Oxygen Concentration - - Weight 104.3 kg (230 lb) 03/27/2022 3:04 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 Height 162.6 cm (5' 4 ) 03/27/2022 3:04 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 Body Mass Index 39.48 03/27/2022 3:04 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 Plan of Treatment Health Maintenance Due Date Last Done Comments Annual Physical 1977 Hepatitis C 1992 Pneumococcal Vaccine: Pediatrics (0 to 5 Years) and At-Risk Patients (6 to 64 Years) (2 of 2 - PCV) 12/28/2017 12/28/2016 Hepatitis B Vaccines (2 of 3 - 19+ 3-dose series) 02/01/2022 01/04/2022 COVID-19 Vaccine (2023-2 5 season) 2024 04/21/2021, 05/21/2020, 05/03/2020 Influenza Adult (#1) 2024 Mammogram Screening 03/01/2024 03/01/2022, 11/26/2017 Cervical Cancer Screening Pa p Smear (Age 30 to 64) Every 3 Years 07/11/2024 07/11/2021, 07/11/2021 Cervical Cancer Screening Pa p with HPV Testing (Age 30 to 64) Every 5 Years 07/11/2026 07/11/2021 Cervical Cancer Screening wi th HPV 07/11/2026 DTaP, Tdap and Td Vaccines ( 2 - Td or Tdap) 01/05/2032 01/04/2022 Colorectal Cancer Screening Colonoscopy (10 Years) 04/04/2032 04/04/2022 Meningococcal B Vaccine Aged Out No l onger eligible based on patient's age to complete this topic Meningococcal Vaccine Aged Out No idalmis nisha eligible based on patient's age to complete this topic RSV Immunizations Under 20 Months Aged Out No longer eligible b ased on patient's age to complete this topic Insurance [employer] Care Teams Manager Audio Relationship Specialty Start Date End Date Светлана Guy NP [address] [place] [address] PCP - General NURSE PRACTITIONER 04/04/22
[2024-07-30 17:44] LABS: HIV 1/2 Ab P24 Ag Result Negative (Negative)
[2024-07-30 18:04] LABS: Syphilis IgG/IgM Antibody Negative (Negative)
[2024-07-30 18:04] LABS: Trichomonas Vag PCR NOT DETECTED (NOT DETECTE)
[2024-07-30 18:26] LABS: Chlamydia trachomatis NOT DETECTED (NOT DETECTE); Neisseria gonorrhoeae PCR NOT DETECTED (NOT DETECTE)
== END 2024-07-30 15:56 | disposition home or self-care (01) ==
LOC: ANHLAB 15:57
PROVIDERS: PCP Family Medicine; Visit Provider Physician Assistant Medical
DX: Z11.3 Encounter for screening for infections with a predominantly sexual mode of transmission (principal)
CPT/HCPCS: 36415; 86593; 86695; 86696; 86703; 87491; 87591; 87661; G0432